=== PATIENT | male | born 1990 ===

== ENCOUNTER 2021-08-05 11:27 | Emergency (ER) | payer SELFPAY ==
[2021-08-05 11:53] VITALS: BP 127/71; PULSE 91; RESP 20; TEMP 36.3; O2SAT 98; BMI 31.1
--- NOTE | 2021-08-05 12:09 | DI.US.S_ITS ---
PROCEDURE: US SCROTUM INDICATIONS: RIGHT TESTICLE PAIN X 9 DAYS TECHNIQUE: Real-time scanning was performed of the scrotum and testicles, with image documentation. Color and pulse Doppler interrogation was performed of both testicles. COMPARISON: None. FINDINGS: Right: Testicle is normal in size at 5.2 x 3.5 x 2.6 cm, and homogenous in echotexture. Epididymis is normal in overall size and morphology. No hydrocele or varicoceles. Overlying scrotal skin is normal in thickness. Left: Testicle is normal in size at 5.2 x 3.0 x 2.7 cm, and homogeneous in echotexture. Epididymis is normal in overall size and morphology. No hydrocele or varicoceles. Overlying scrotal skin is normal in thickness. Doppler: Color and pulse Doppler demonstrate a normal distribution vascularity within the right and left testes. Arterial and venous flow are seen bilaterally. Left testicular flow appears slightly increased on [id number] color flow images. IMPRESSION: No sonographic signs of testicular torsion or epididymitis. Dictated by: Maksim Jacob M.D. on 08/05/2021 at 13:12 Approved by: Maksim Jacob M.D. on 08/05/2021 at 13:15
--- NOTE | 2021-08-05 14:33 | ED.MALEGU ---
HPI - Male Genitourinary <ANDERS Schaefer - Last Filed: 08/05/21 15:40> General Chief complaint: Urogenital-Male Stated complaint: testicular pain x 1 week Time Seen by Provider: 08/05/21 13:56 History of Present Illness HPI Narrative: 30-year-old male presents to the emergency department complaining of right testicular pain for 9 days, he states he was seen at [facility] yesterday and was sent to the hospital for another evaluation. 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 He states he feels a palpable firm area at the top of his right testicle and states his scrotum is slightly swollen above baseline. He denies any open wounds, penile drainage, urinary symptoms or difficulty urinating. He denies any STI exposure. Related Data Home Medications Medication Instructions Recorded Confirmed Promethazine HCl (Phenergan) 25 mg PO PRN #0 03/21/10 [[facility]] #0 03/21/10 Previous Rx's Medication Instructions Recorded doxycycline hyclate 100 mg tablet 100 mg PO BID 10 Days #20 tab 08/05/21 Allergies Allergy/AdvReac Type Severity Reaction Status Date / Time No Known Drug Allergies Allergy Unverified 08/04/21 15:05 Review of Systems <ANDERS Schaefer - Last Filed: 08/05/21 15:40> Review of Systems Narrative: General: denies fever, chills, malaise, sweats, fatigue Head/Neck: denies headache, neck pain, dizziness Eyes: denies visual changes, eye pain Cardio: denies chest pain, palpitations, edema Respiratory: denies dyspnea, cough, orthopnea GI: denies abdominal pain, nausea, vomiting, or diarrhea : denies dysuria, hematuria, urinary retention, frequency or incontinence, endorses right scrotal pain palpable firm area MSK: denies joint pain, muscle weakness Skin: denies rash, itching, skin lesions or other Neuro: denies numbness, tingling Patient History <ANDERS Schaefer - Last Filed: 08/05/21 15:40> Social History Smoking Status: Former smoker Smoking Status: Former smoker Substance Use Type: marijuana Exam <ANDERS Schaefer - Last Filed: 08/05/21 15:40> Narrative Exam Narrative: Independently reviewed vitals signs and nursing notes. Dr. Jun Ordaz was my wine manager for exam General: Cooperative, comfortable, in no acute distress, well developed and well groomed Head/Neck: Normal visual inspection and supple, atraumatic, no JVD or lymphadenopathy. Normal facial exam Eyes: Pupils equal round and reactive, EOMI, conjunctiva normal, no scleral icterus or injections Nose: External nose normal, nares patent, no rhinorrhea, without purulent drainage Mouth/Throat: uvula midline, moist mucus membranes Cardio: Regular rate and rhythm, no peripheral edema, warm extremities Respiratory: Normal respiratory effort, able to speak in complete sentences without audible wheezing, stridor, or rales. No retractions. GI: Abdomen soft, nontender to palpation x4 quadrants, nondistended, no masses or exquisite tenderness with exam, no flank tenderness : Scrotum his not edematous, appears equal bilaterally, tenderness to top of right testicle with likely inflammation at the top of his right testicle. Patient was significantly tender here. No open wounds, no rash, no penile drainage. No pain or tenderness on left testicle. MSK: Moves all extremities, neurovascularly intact Skin: Normal capillary refill, no rash Neuro: Normal speech and cognition, normal gait, A&O x3, tone normal, moves all extremities Psych: Mental status is grossly normal, speech is clear, congruent mood, normal affect a Initial Vital Signs Initial Vital Signs: Vital Signs Temperature 97.4 F L 08/05/21 11:53 Pulse Rate 91 H 08/05/21 11:53 Respiratory Rate 20 08/05/21 11:53 Blood Pressure 127/71 08/05/21 11:53 Pulse Oximetry 98 08/05/21 11:53 <Jun Ordaz DO - Last Filed: 08/05/21 17:02> Initial Vital Signs Initial Vital Signs: Vital Signs Temperature 97.4 F L 08/05/21 11:53 Pulse Rate 91 H 08/05/21 11:53 Respiratory Rate 20 08/05/21 11:53 Blood Pressure 127/71 02/02/22 11:53 Pulse Oximetry 98 08/05/21 11:53 Course <ANDERS Schaefer - Last Filed: 08/05/21 15:40> Orders Ordered: ED Orders 08/05/21 12:09 US scrotum Stat 08/05/21 15:05 Chlamydia Gonorrhea PCR -URINE Stat Discontinued Medications Ceftriaxone Sodium (Ceftriaxone 1,000 Mg Vial) 500 mg IM NOW ONE Stop: 08/05/21 14:40 Last Admin: 08/05/21 15:10 Dose: 500 mg Documented by: LAURA Doxycycline Hyclate (Doxycycline Hyclate 100 Mg Tablet) 100 mg PO NOW ONE Stop: 08/05/21 14:40 Last Admin: 08/05/21 15:09 Dose: 100 mg Documented by: LAURA Ketorolac Tromethamine (Ketorolac 30 Mg/Ml Vial) 15 mg IM NOW ONE Stop: 08/05/21 14:40 Last Admin: 08/05/21 15:09 Dose: 15 mg Documented by: LAURA Lidocaine HCl (Lidocaine 1% (Pf) 5 Ml) 2.1 ml INJ NOW ONE Stop: 08/05/21 14:40 Last Admin: 08/05/21 15:39 Dose: Not Given Documented by: LAURA Vital Signs Vital signs: Vital Signs - 8 hr 08/05/21 11:53 08/05/21 15:38 Temperature 97.4 F L Pulse Rate 91 H 72 Respiratory Rate 20 16 Blood Pressure 127/71 141/60 H Pulse Oximetry 98 99 <Jun Ordaz DO - Last Filed: 08/05/21 17:02> Orders Ordered: ED Orders 08/05/21 12:09 US scrotum Stat 08/05/21 15:05 Chlamydia Gonorrhea PCR -URINE Stat Discontinued Medications Ceftriaxone Sodium (Ceftriaxone 1,000 Mg Vial) 500 mg IM NOW ONE Stop: 08/05/21 14:40 Last Admin: 08/05/21 15:10 Dose: 500 mg Documented by: LAURA Doxycycline Hyclate (Doxycycline Hyclate 100 Mg Tablet) 100 mg PO NOW ONE Stop: 08/05/21 14:40 Last Admin: 08/05/21 15:09 Dose: 100 mg Documented by: LAURA Ketorolac Tromethamine (Ketorolac 30 Mg/Ml Vial) 15 mg IM NOW ONE Stop: 08/05/21 14:40 Last Admin: 08/05/21 15:09 Dose: 15 mg Documented by: LAURA Lidocaine HCl (Lidocaine 1% (Pf) 5 Ml) 2.1 ml INJ NOW ONE Stop: 08/05/21 14:40 Last Admin: 08/05/21 15:39 Dose: Not Given Documented by: LAURA Vital Signs Vital signs: Vital Signs - 8 hr 08/05/21 11:53 08/05/21 15:38 Temperature 97.4 F L Pulse Rate 91 H 72 Respiratory Rate 20 16 Blood Pressure 127/71 141/60 H Pulse Oximetry 98 99 MDM - Male Genitourinary <ELYSSA SchaeferP - Last Filed: 08/05/21 15:40> Lab Data Labs: Lab Results 08/05/21 Range/Units 15:05 Ur Chlamydia DNA (PCR) Not detected N gonorrhoeae DNA (PCR) Not detected Urine Dip Bedside Urine Glucose Negative Bedside Urine Bilirubin - Negative Bedside Urine Ketone - Negative Urine Specific [place] 1.020 Bedside Urine Occult Blood - Negative Bedside Urine pH 7.5 Bedside Urine Protein - Negative Bedside Urine Urobilinogen - Negative Bedside Urine Nitrite - Negative Bedside Urine Leukocytes - Negative Esterase Imaging Data US - DIRECTOR OF CONSTRUCTION: Radiologist's Impression: PROCEDURE:? US SCROTUM ? INDICATIONS:? RIGHT TESTICLE PAIN X 9 DAYS ? TECHNIQUE:? Real-time scanning was performed of the scrotum and testicles, with image documentation.? Color and pulse Doppler interrogation was performed of both testicles.? ? COMPARISON:? None. ? FINDINGS:? ? Right:? Testicle is normal in size at 5.2 x 3.5 x 2.6 cm, and homogenous in echotexture.? Epididymis is normal in overall size and morphology.? No hydrocele or varicoceles.? Overlying scrotal skin is normal in thickness.? ? Left:? Testicle is normal in size at 5.2 x 3.0 x 2.7 cm, and homogeneous in echotexture.? Epididymis is normal in overall size and morphology.? No hydrocele or varicoceles.? Overlying scrotal skin is normal in thickness.? ? Doppler:? Color and pulse Doppler demonstrate a normal distribution vascularity within the right and left testes.? Arterial and venous flow are seen bilaterally.? Left testicular flow appears slightly increased on [id number] color flow images.? ? IMPRESSION:? No sonographic signs of testicular torsion or epididymitis. ? ? Dictated by: Maksim Jacob M.D. on 08/05/2021 at 13:12 ? ? Approved by: Maksim Jacob M.D. on 08/05/2021 at 13:15 ? [facility] Narrative Medical decision making narrative: 30-year-old male presents to the emergency department for testicular pain x9 days. Patient had significant tenderness to the anterior aspect of his right testicle was some mild inflammation palpable. US scrotum is negative for testicular torsion or epididymitis however on clinical exam patient had tenderness over this area and I opted to treat him empirically with azithromycin and doxycycline since this is his 2nd visit for these concerns. His urine gonorrhea and chlamydia are pending. Patient states that he had tried anti-inflammatories, scrotal support, and his symptoms are ongoing and still painful. He was given Toradol, 500 mg of ceftriaxone, and 100 of doxycycline with a prescription for 100 of doxycycline b.i.d. for 10 days. Patient was monitored after medication administration without any adverse reaction. Patient understands to follow-up with his primary care provider if if symptoms persist or return to the emergency department if he has any difficulty urinating, worsening pain, swelling, nausea vomiting. Differential diagnosis include testicular torsion although not viewed on ultrasound today, inguinal hernia, testicular malignancy, torsion of epididymis, hydrocele, chlamydia, gonorrhea, other STI, orchitis, and epididymitis. <Jun Ordaz, DO - Last Filed: 08/05/21 17:02> Lab Data Labs: Lab Results 08/05/21 Range/Units 15:05 Ur Chlamydia DNA (PCR) Not detected N gonorrhoeae DNA (PCR) Not detected Urine Dip Bedside Urine Glucose Negative Bedside Urine Bilirubin - Negative Bedside Urine Ketone - Negative Urine Specific [place] 1.020 Bedside Urine Occult Blood - Negative Bedside Urine pH 7.5 Bedside Urine Protein - Negative Bedside Urine Urobilinogen - Negative Bedside Urine Nitrite - Negative Bedside Urine Leukocytes - Negative Esterase Discharge Plan Departure Patient Disposition: Home Clinical Impression: Acute epididymitis Instructions: Epididymitis Activity Restrictions/Additional Instructions: *You have been diagnosed with epididymitis. Because of your pain tenderness I opted to treat you empirically with antibiotics to help this improve. Please do not take any more ibuprofen today and picking tech her prescriptions at [facility] tomorrow. If you have any worsening of your symptoms, are unable to urinate, or your pain become severe please return to the emergency department for another evaluation. I hope this helps and that you get better soon. *What to do: *Please continue to take your regular medications as directed. [x ] New medication prescriptions sent to your pharmacy: [ [facility]] [ ] New medication written as a paper prescription [ ] No new medications given *Please follow up with your primary care provider in 2-3 days, call for an appointment. Let them know you were seen in the Emergency Department and that we ask that you be seen in follow up. We will electronically transmit a record of today's note if your PCP is in our system *If you do not have a primary care provider please contact the [facility] Resource line at [phone]. They will ask some questions about your medical history and help get you set up with a doctor in the community. *Return to Emergency Department if you should have any new, worsening or concerning symptoms, such as [fever greater than 101F, chills, worsening pain, persistent vomiting or other bothersome symptoms] Prescriptions: New doxycycline hyclate 100 mg tablet 100 mg PO BID 10 Days Qty: 20 0RF No Action Promethazine HCl (Phenergan) 25 mg PO PRN Qty: 0 0RF [[facility]] Qty: 0 0RF Referrals: Darell [facility] MD [Primary Care Provider] - <Jun Ordaz DO - Last Filed: 08/05/21 17:02> [facility]: I did evaluate the patient with the APC. Urinalysis is unremarkable. Patient denies concern for sexually transmitted infections. Ultrasound shows no signs of acute pathology. The ?mass? the patient is feeling in the right testicle is the epididymis. He is significantly tender in this area consistent with epididymitis despite not appearing on the ultrasound. I would recommend treating his symptoms like epididymitis. No indication for admission of the hospital. Patient was given return precautions. He expressed understanding and agreement.
[2021-08-05] MEDS: DOXYCYCLINE HYCLATE 100 MG TABLET PO (15:09)
[2021-08-05] MEDS: KETOROLAC 30 MG/ML VIAL 15 MG IM (15:09)
[2021-08-05] MEDS: cefTRIAXone 1,000 MG VIAL 500 MG IM (15:10)
[2021-08-05 15:38] VITALS: BP 141/60; PULSE 72; RESP 16; O2SAT 99
[2021-08-05 16:35] LABS: Urine N gonorrhoeae NOT DETECTED
[2021-08-05 16:48] LABS: Urine Chlamydia NOT DETECTED
== END 2021-08-05 15:38 | disposition home or self-care (01) ==
PROVIDERS: Emergency Provider Nurse Practitioner Critical Care Medicine; PCP Family Medicine
DX: N45.1 Epididymitis (principal); Z87.891 Personal history of nicotine dependence
CPT/HCPCS: 76870; 81003; 87491; 87591; 96372; 99283; 99284; J0696; J1885

== ENCOUNTER 2025-06-22 20:55 | Emergency (ER) | payer SELFPAY ==
[2025-06-22] VITALS (7 sets, daily range): BP systolic 118–168; BP diastolic 85–103; PULSE 82–100; RESP 18; TEMP 37; O2SAT 97–98; BMI 29.8
--- OUTSIDE RECORDS SUMMARY | 2025-06-22 20:58 | XMS_ITS | Patient Health Record ---
Author Organization [facility] Address [address] [place] [address] Support Name Relationship Address Phone Zach Hawkins Guarantor Unknown Unavailable Allergies No Known Allergies Reason For Referral No Information Medications Medication SIG (Take, Route, Frequency, Duration) Notes Start Date End Date Status Xanax 0.5 MG 1 tablet Orally once a day; Duration: 7 days 03/23/2024 Active Social History Tobacco Use: Social History Observation Description Date Details (start date - stop date) Never Smoker NA - NA Tobacco Control (Standard) Question Answer Notes Tobacco use: Nonsmoker Problems Problem Type SNOMED Code ICD Code Onset Dates Problem Status W/U Status Risk Notes Problem Anxiety (66175533) Anxiety (F41.9) Active confirmed Plan Of Treatment Pending Test Test Name Order Date COMPREHENSIVE METABOLIC PANEL (72561) CBC (INCLUDES DIFF/PLT) (6399) HEMOGLOBIN A1c (496) 03/23/2024 HCG, TOTAL, QL (8435) 03/23/2024 LIPID PANEL, STANDARD (7600) 03/23/2024 Insurance Providers Payer Name Payer Address Payer Phone Subscriber Number Group Number Insured Name Patient Relationship to Insured Coverage Start Date Coverage End Date [facility] Self Pay [address] [place] [address] [phone] Zach Hawkins Self - patient is the insured
--- NOTE | 2025-06-22 21:23 | ED.WOUNDLAC ---
HPI - Wound/Laceration General Chief Complaint: Wound/Laceration Stated Complaint: left hand ring finger injury Time Seen by Provider: 06/22/25 21:08 Source: patient Mode of arrival: Family Vehicle History of Present Illness HPI narrative: 34-year-old male who was using a table saw 2 days ago and had a piece of wood flew out and injured his left ring finger and left middle finger. He does have some dressing over the area currently. He was not seen by a provider at the time for an evaluation. He is saying the pain is unchanged but is still pretty painful. He does have some numbness to the tip of his left 4th finger at this time. He does have some mobility but pain with some mobility of the finger. No other symptoms. Related Data Home Medications ?Medication ?Instructions ?Recorded ?Confirmed Promethazine HCl (Phenergan) 25 mg PO PRN ##0 03/21/10 03/23/22 [[facility]] ##0 03/21/10 03/23/22 Previous Rx's ?Medication ?Instructions ?Recorded cephalexin 500 mg capsule 500 mg PO BID #10 caps 06/18/24 cephalexin 500 mg capsule 500 mg PO BID #14 caps 06/23/25 lorazepam 1 mg tablet 1 mg PO DAILY PRN pain #5 tabs 06/23/25 Allergies Allergy/AdvReac Type Severity Reaction Status Date / Time No Known Drug Allergies Allergy Verified 06/22/25 21:05 Review of Systems Review of Systems ROS Unobtainable: All systems reviewed & are unremarkable except as noted in HPI and below Patient History Medical History (Updated 06/23/25 @ 02:12 by Arnulfo Wolff MD) Nail, injury by Encounter for sterilization Sterilization consult Social History marital status: unmarried,single number of children: 3 Type(s) of exercise: other frequency: daily Exam Narrative Exam Narrative: General: Patient appears to be in no acute distress, acting appropriately Head: normocephalic, atraumatic, HEENT: Pupils equal round reactive, eyes tracking well, neck supple, no JVD Heart: regular rate and rhythm, no murmurs, rubs, or gallops heard Lungs: clear to auscultation, no adventitious sounds Abdomen: soft , nontender, nondistended, positive bowel sounds Neurological: no focal neurological signs, moving all extremities well, alert and oriented x3, Psych: good judgment ,good insight, mood is normal. left hand: left fourth finger distal area is black and has decreased sensation, pain with palpation over distal metacarapl area on dorsal side with palpation and with flexion, distal end of third finger on left hand has an abrasion at distal end but full rom, intact sensation, no pain with palpation. Patient able to extend the finger without much pain. Some pain in the distal end but no clear kanavel's sign Initial Vital Signs Initial Vital Signs: Vital Signs Temperature 98.6 F 06/22/25 21:05 Pulse Rate 87 06/22/25 21:05 Respiratory Rate 18 06/22/25 21:05 Blood Pressure 118/86 06/22/25 21:05 Pulse Oximetry 98 06/22/25 21:05 Oxygen Delivery Method Room Air 06/22/25 21:05 Procedures Nerve Block Nerve Block 1: Time out performed: Yes Local Anesthetic: bupivacaine 0.5% Amount of anesthesia used (mL): 6 Side: left Nerve Blocks: digital Procedure Successful: Yes Patient Tolerated Procedure: Well and No complications Course Orders Ordered: ED Orders 06/22/25 21:27 XR hand LT min 3V Stat 06/22/25 21:30 CBC Auto Diff [Complete Blood Count AUTO DIFF] Stat CMP [Comprehensive Metabolic Panel] Stat Lactate (Lactic Acid) Stat Procalcitonin Stat 06/22/25 22:10 Blood Culture Stat 06/23/25 01:08 CRP [C-Reactive Protein Quant] Stat ESR [Erythrocyte Sedimentation Rate] Stat Discontinued Medications Cefazolin Sodium/Dextrose (Ancef) 100 mls @ 200 mls/hr IV NOW ONE Stop: 06/22/25 23:30 Last Infusion: 06/23/25 00:07 Dose: Infused Documented By: Admin: 06/22/25 23:24 Dose: 200 mls/hr Documented By: DANIA Lorazepam (Lorazepam 2 Mg/Ml Inj) 1 mg IV NOW ONE Stop: 06/22/25 21:33 Last Admin: 06/22/25 21:38 Dose: 1 mg Documented By: RLC Consultations Consultation #1: consultation made with orthopedic surgery Dr. Johnson who suggested to f/up in clinic for concern of necrosis of finger and will need to wait a week to see how the finger is progressing to decide on a plan. will f/up with him in clinic this week. Vital Signs Vital signs: Vital Signs - 8 hr 06/22/25 21:05 06/22/25 21:42 06/22/25 21:42 Temperature 98.6 F Pulse Rate 87 87 Respiratory Rate 18 Blood Pressure 118/86 168/88 H Pulse Oximetry 98 97 Oxygen Delivery Method Room Air 06/22/25 22:00 06/22/25 22:01 06/22/25 22:01 Temperature Pulse Rate 97 H 95 H Respiratory Rate Blood Pressure 154/103 H Pulse Oximetry 97 97 Oxygen Delivery Method 06/22/25 22:30 06/22/25 22:30 06/22/25 23:00 Temperature Pulse Rate 100 H 90 Respiratory Rate Blood Pressure 137/98 H Pulse Oximetry 97 Oxygen Delivery Method 06/22/25 23:30 06/22/25 23:30 06/23/25 00:00 Temperature Pulse Rate 82 79 Respiratory Rate Blood Pressure 126/85 Pulse Oximetry 97 98 Oxygen Delivery Method 06/23/25 01:02 06/23/25 01:30 06/23/25 01:31 Temperature Pulse Rate 87 80 Respiratory Rate Blood Pressure 136/84 Pulse Oximetry 99 99 Oxygen Delivery Method 06/23/25 01:31 06/23/25 02:00 Temperature Pulse Rate 75 73 Respiratory Rate Blood Pressure Pulse Oximetry 98 99 Oxygen Delivery Method MDM - Wound/Laceration Lab Data 06/22/25 21:30 06/22/25 21:30 Labs: Lab Results 06/22/25 Range/Units 21:30 WBC 5.1 (4.5-11.0) X10^3/uL RBC 5.22 (4.5-5.9) X10^6/uL Hgb 14.9 (13.5-17.5) g/dL Hct 42.4 (41-53) % MCV 81.2 (80-100) fL MCH 28.6 (26-34) PG MCHC 35.2 (30-36) % RDW 12.8 (11.6-14.8) % Plt Count 192 (150-400) X10^3/uL Neut % (Auto) 50.6 (50-75) % Lymph % (Auto) 39.4 (25-40) % [place] % (Auto) 4.6 (3-14) % Eos % (Auto) 4.5 H (2-4) % Baso % (Auto) 0.9 (0-2) % Neut # (Auto) 2600 (8110-0789) /uL Lymph # (Auto) 2000 (6227-2010) /uL [place] # (Auto) 200 (0-900) /uL Eos # (Auto) 200 (0-450) /uL Baso # (Auto) 0 (0-100) /uL ESR 16 H (0-15) MM/HR Sodium 139 (137-145) mmol/L Potassium 3.5 (3.4-5.1) mmol/L Chloride 103 (98-107) mmol/L Carbon Dioxide 29 (22-32) mmol/L BUN 12 (9-20) mg/dL Creatinine 0.80 (0.66-1.25) mg/dL Estimated GFR > 60 (>60) mL/min BUN/Creatinine Ratio 15.0 (6-22) Glucose 73 (70-99) mg/dL Lactate 1.1 (0.7-2.1) mmol/L Calcium 9.1 (8.4-10.2) mg/dL Total Bilirubin 0.5 (0.2-1.3) mg/dL AST 39 (17-59) IU/L ALT 31 (<50) IU/L Alkaline Phosphatase 47 (38-126) U/L C-Reactive Protein < 0.5 (<1.0) mg/dL Total Protein 7.2 (6.3-8.2) g/dL Albumin 4.5 (3.5-5.0) g/dL Globulin 2.7 (1.7-4.1) g/dL Albumin/Globulin Ratio 1.7 (1.0-2.8) Procalcitonin 0.046 (<0.5) ng/mL Imaging Data Extremity x-ray #1: Radiologist's Impression: Punctate radio-opaque densities at the tip of the 4th distal finger, which may reflect foreign bodies versus tiny fragments off the fourth distal phalangeal tuft. No displaced fracture or traumatic malalignment otherwise. [facility] Narrative Medical decision making narrative: 34-year-old male with a traumatic injury over the left 4th finger after being smacked by wood piece while using a table saw. Patient's tip of his distal finger is now black and there is concerns for necrosis. Orthopedic surgery was consulted and suggested waiting at least a week before deciding on a plan due to needing that much time the see how the finger progresses. Patient advised to look out for signs of tenosynovitis. Less concern for tenosynovitis today considering he did not have any Kanavel sign and labs reassuring. Patient preemptively will be started on Keflex just in case and given a dose of Ancef here in the ED prior to discharge. Advised to follow up in the ED immediately if there are signs of tenosynovitis. Discharge Plan Departure Patient Disposition: Home Clinical Impression: Finger necrosis Activity Restrictions/Additional Instructions: Follow up with Orthopedic surgery this week. They will call you Tuesday morning. Look out for signs of pain when the finger extends, come back er sooner if that happens or finger stays flexed. Prescriptions: New cephalexin 500 mg capsule 500 mg PO BID Qty: 14 0RF lorazepam 1 mg tablet 1 mg PO DAILY PRN (Reason: pain) Qty: 5 0RF No Action Promethazine HCl (Phenergan) 25 mg PO PRN Qty: 0 [[facility]] Qty: 0 cephalexin 500 mg capsule 500 mg PO BID Qty: 10 0RF Referrals: Darell Wayne MD [Primary Care Provider, Family Practice] Jose Manuel Johnson MD [Physician, Orthopedics] Stand Alone Forms: Patient Portal/API
--- NOTE | 2025-06-22 21:27 | DI.RAD.S_ITS ---
PROCEDURE: XR HAND LT MIN 3V INDICATIONS: trauma TECHNIQUE: 3 views of the hand(s) acquired. COMPARISON: [facility] ([facility]), CR, XR HAND RT MIN 3V, 04/13/2022, 10:50. FINDINGS: Punctate radio-opaque densities at the tip of the 4th distal finger, which may reflect foreign bodies versus tiny fragments off the fourth distal phalangeal tuft. No displaced fracture or traumatic malalignment otherwise. Joint spaces are preserved. IMPRESSION: Punctate radio-opaque densities at the tip of the 4th distal finger, which may reflect foreign bodies versus tiny fragments off the fourth distal phalangeal tuft. No displaced fracture or traumatic malalignment otherwise. Dictated by: Alana Magdaleno M.D. on 06/23/2025 at 0:03 Approved by: Alana Magdaleno M.D. on 06/23/2025 at 0:06
[2025-06-22 21:37] LABS: Add Manual Diff / Slide Review NO; Hematocrit 42.4 % (41-53); Hemoglobin 14.9 g/dL (13.5-17.5); Lymphocytes Absolute Auto 2000 /uL (1100-4500); Mean Corpuscular HGB Conc 35.2 % (30-36); Mean Corpuscular Hemoglobin 28.6 PG (26-34); Mean Corpuscular Volume 81.2 fL (80-100); Platelet Count 192 X10^3/uL (150-400)
[2025-06-22 21:49] LABS: Alanine Aminotransferase 31 IU/L (<50); Albumin 4.5 g/dL (3.5-5.0); Albumin Globulin Ratio 1.7 (1.0-2.8); Alkaline Phosphatase 47 U/L (38-126); Blood Urea Nitrogen 12 mg/dL (9-20); Calcium 9.1 mg/dL (8.4-10.2); Carbon Dioxide 29 mmol/L (22-32); Chloride 103 mmol/L (98-107); Estimated Glomerular Filt Rate > 60 mL/min (>60); Globulin 2.7 g/dL (1.7-4.1); Glucose 73 mg/dL (70-99); HEMOLYSIS 20 (0-50); Potassium 3.5 mmol/L (3.4-5.1); Sodium 139 mmol/L (137-145); Total Protein 7.2 g/dL (6.3-8.2)
[2025-06-22 21:50] LABS: Lactate (Lactic Acid) 1.1 mmol/L (0.7-2.1)
[2025-06-22 22:06] LABS: Procalcitonin 0.046 ng/mL (<0.5)
[2025-06-23] VITALS: PULSE 79; O2SAT 98
[2025-06-23 01:02] VITALS: PULSE 87; O2SAT 99
[2025-06-23 01:30] VITALS: PULSE 80; O2SAT 99
[2025-06-23 01:31] VITALS: BP 136/84; PULSE 75; O2SAT 98
[2025-06-23 02:00] VITALS: PULSE 73; O2SAT 99
--- NOTE | 2025-06-23 02:06 | P.PN_ITS ---
Subjective Subjective Interval history: Received a consult this evening regarding Zach. Photograph reviewed of fingertip with a small laceration that appears hemostatic on the volar/radial aspect of the ring fingertup. Radiographs are normal. Substantial ecchymosis present throughout that fingertip. Finger is held in a position of maximal extension and does not exhibit fusiform swelling which is reassuring for an absence of FTS. WBC 5.1, ESR 16, CRP <0.5. Patient to be sent out for close clinical followup of finger to monitor healing and follow for fingertip necrosis in which case I would perform a fingertip amputation, possibly with resection of a portion of the distal phalanx to facilitate wound closure. My next clinic is Tuesday and I will plan to see him there and to follow this at regular intervals to determine whether or not the fingertip necroses. Patient to be educated on [place] signs (fusiform swelling, flexed posturing, pain tracking proximally along the tendon sheath, severe pain with passive extension) and instructed to return to the ED should he develop them. Prophylactic antibiotics may be utilized. Exam Vital Signs (past 8 hours): - 06/22/25 21:05 Temperature 98.6 F Pulse Rate 87 Respiratory Rate 18 Blood Pressure 118/86 Pulse Oximetry 98 Oxygen Delivery Method Room Air Oxygen Delivery Method Room Air Objective Labs 06/22/25 21:30 06/22/25 21:30 Labs: Laboratory Results - last 24 hr 06/22/25 21:30 WBC 5.1 RBC 5.22 Hgb 14.9 Hct 42.4 MCV 81.2 MCH 28.6 MCHC 35.2 RDW 12.8 Plt Count 192 Neut % (Auto) 50.6 Lymph % (Auto) 39.4 [place] % (Auto) 4.6 Eos % (Auto) 4.5 H Baso % (Auto) 0.9 Neut # (Auto) 2600 Lymph # (Auto) 2000 [place] # (Auto) 200 Eos # (Auto) 200 Baso # (Auto) 0 ESR 16 H Sodium 139 Potassium 3.5 Chloride 103 Carbon Dioxide 29 BUN 12 Creatinine 0.80 Estimated GFR > 60 BUN/Creatinine Ratio 15.0 Glucose 73 Lactate 1.1 Calcium 9.1 Total Bilirubin 0.5 AST 39 ALT 31 Alkaline Phosphatase 47 C-Reactive Protein < 0.5 Total Protein 7.2 Albumin 4.5 Globulin 2.7 Albumin/Globulin Ratio 1.7 Procalcitonin 0.046 PFSH Medical History (Updated 04/13/22 @ 12:44 by Staci Tuttle PA-C) Nail, injury by Encounter for sterilization Sterilization consult Social History marital status: unmarried,single number of children: 3 Type(s) of exercise: other frequency: daily Assessment & Plan Time-Based Coding :: [TOTAL MINUTES] spent with patient and on the chart (including review of chart, obtaining history, exam, reviewing outside data, placing orders, documenting exam and treatment plan, and counseling patient) on [DATE]. [employer] Document charge(s): No
--- NOTE | 2025-06-23 02:34 | PC.NURSE ---
finger wrapped with telfa and cling
== END 2025-06-23 02:39 | disposition home or self-care (01) ==
PROVIDERS: Emergency Provider Family Medicine; PCP Family Medicine
DX: S61.213A Laceration without foreign body of left middle finger without damage to nail, initial encounter (principal); R03.0 Elevated blood-pressure reading, without diagnosis of hypertension; W22.8XXA Striking against or struck by other objects, initial encounter
CPT/HCPCS: 36415; 73130; 80053; 83605; 84145; 85025; 85651; 86140; 87040; 96365; 96375; 99284; J0689; J2060